=== PATIENT | male | born 1980 | race African-American/Black ===

== ENCOUNTER 2016-06-22 22:42 | Emergency (ER) | payer SELFPAY ==
[2016-06-22] MEDS ORDERED: Fentanyl 100 MCG/2 ML VIAL ONE (23:17)
[2016-06-22] MEDS ORDERED: Ondansetron HCl/PF 4 MG/2 ML Vial ONE (23:17)
[2016-06-22] MEDS ORDERED: Nitroglycerin 2% Ointment 1 INCH/1 GM Packet ONE (23:17)
[2016-06-22 23:30] LABS: #Basophils 0.1 thou/uL (0.0-0.2); #Eosinphils 0.2 thou/uL (0.0-0.7); #Lymphocytes 3.2 thou/uL (1.20-3.40); #Monocytes 1.2 thou/uL (0.11-0.59); #Neutrophils 8.4 thou/uL (1.40-6.50); %Eosinophils 1.9 % (0.0-10.0); %Lymphocytes 24.6 % (21.0-51.0); %Monocytes 8.8 % (0.0-10.0); %Neutrophils 63.8 % (42.0-75.0); Hemoglobin 15.3 g/dL (14.0-18.0); Mean Corpuscular HGB CONC 34.2 g/dL (32.0-36.0); Mean Corpuscular Hemoglobin 30.5 pg (27.0-31.0); Mean Corpuscular Volume 89.2 fl (80.0-94.0); Mean Platelet Volume 7.5 fL (7.4-10.4); Platelet Count 246 thou/uL (130-400); RBC Distribution Width 13.5 % (11.5-14.5); Red Blood Cell (RBC) Count 5.01 mill/uL (4.70-6.10); White Blood Cell (WBC) Count 13.2 thou/uL (4.8-10.8)
[2016-06-22 23:47] LABS: ALT (SGPT) 19 U/L (8-55); AST (SGOT) 17 U/L (5-34); Albumin 4.1 g/dL (3.5-5.0); Alkaline Phosphatase 124 U/L (40-150); Anion Gap 19 mmol/L (10-20); BUN (Urea Nitrogen) 29 mg/dL (8.9-20.6); Bilirubin, Total 0.7 mg/dL (0.2-1.2); Calc. Creatinine Clearance 0 mL/min (70-130); Calcium 8.8 mg/dL (7.8-10.44); Carbon Dioxide 20 mmol/L (22-29); Chloride 109 mmol/L (98-107); Estimated GFR-MDRD 23; Globulin 3.3 g/dL (2.4-3.5); Glucose 198 mg/dL (70-105); Lipase 40 U/L (8-78); Potassium 3.2 mmol/L (3.5-5.1); Protein, Total 7.4 g/dL (6.0-8.3); Sodium 145 mmol/L (136-145)
[2016-06-22 23:48] LABS: CKMB 1.9 ng/mL (0-6.6); Troponin I 0.024 ng/mL (< 0.028)
[2016-06-23] MEDS ORDERED: cloNIDine HCl 0.1 MG TAB ONE ×3 (00:03→02:19)
[2016-06-23 00:45] LABS: Bilirubin Negative (Negative); Blood, Urine Moderate (Negative); Clarity Clear (Clear); Glucose, Urine (Dipstick) 100 mg/dL (Negative); Leukocyte Negative (Negative); Nitrite Negative (Negative); Protein, Urine (Dipstick) > or equal to 300 mg/dL (Neg-Trace); Specific Gravity, Urine 1.025 (1.005-1.030)
[2016-06-23 00:58] LABS: Amphetamine Not Detected (NotDetected); Barbiturates Screen Not Detected (NotDetected); Benzodiazepine Screen Not Detected (NotDetected); Cocaine Metabolite Screen Not Detected (NotDetected); Medtox Control Line Valid? VALID (VALID); Methadone Not Detected (NotDetected); Methamphetamine Not Detected (NotDetected); Opiate Screen Detected (NotDetected); Oxycodone Screen Not Detected (NotDetected); Phencyclidine (PCP) Not Detected (NotDetected); THC/Cannabinoid Screen Not Detected (NotDetected); Tricyclic Screen Not Detected (NotDetected)
[2016-06-23 01:02] LABS: Crystals/HPF 1+ AMORPH URATES HPF (Negative); RBC/HPF 0-3 HPF (0-3); Squamous Epithelial 0-3 HPF (0-3); WBC/HPF 0-3 HPF (0-3)
[2016-06-23] MEDS ORDERED: Ondansetron HCl/PF 4 MG/2 ML Vial ONE (01:22)
[2016-06-23] MEDS ORDERED: Metoprolol Tartrate 5 MG/5 ML VIAL ONE (01:22)
[2016-06-23 02:04] LABS: CKMB 2.3 ng/mL (0-6.6); Troponin I 0.016 ng/mL (< 0.028)
[2016-06-23] MEDS ORDERED: Morphine Sulfate 2 MG/ML SYRINGE ONE (02:28)
[2016-06-23] MEDS ORDERED: niCARdipine 40MG In NaCl 40 MG/200 ML BAG ONE (02:38)
--- NOTE | 2016-06-23 07:03 | RAD ---
PORTABLE CHEST: Date: 06/22/16 An AP portable film at 2307 hours is presented with no prior films available for comparison. FINDINGS: The heart is mildly enlarged. The vessels are slightly prominent, but the depth of inspiration is ve ry shallow, so it is difficult to assess them accurately. No major lobar infiltrate was appreciated. At most, there might be some minor atelectasis in the left base. IMPRESSION: Mild cardiomegaly. Slight vascular prominence probably more likely due to the shallow depth of inspi ration than any congestion. POS: HOME
== END 2016-06-23 03:13 | disposition short-term general hospital (02) ==
LOC: BURERS 22:42
DX: I16.9 Hypertensive crisis, unspecified (principal); N19 Unspecified kidney failure; M54.5 Low back pain; F17.210 Nicotine dependence, cigarettes, uncomplicated; Z79.899 Other long term (current) drug therapy
CPT/HCPCS: 71010; 80053; 80306; 81003; 81015; 82553; 83690; 84484; 85025; 93005; 94760; 96365; 96375; 96376; J2270; J2405; J3010